=== PATIENT | male | born 1955 | race Caucasian/White ===

== ENCOUNTER 2019-03-08 08:01 | Day surgery (SDC) | payer OTHER ==
[2019-03-03 10:12] VITALS: BMI 35.4
[~2019-03-08 08:01] MED LIST: LACTATED RINGERS 1,000 ML IV SCH
[2019-03-08 08:30] VITALS: TEMP 97.1
[2019-03-08] MEDS ORDERED: PROPOFOL 10 MG/ML 20 ML VIAL IV ONE (09:45)
[2019-03-08] MEDS ORDERED: MIDAZOLAM 2 MG/2 ML VIAL ONE (09:45)
[2019-03-08] MEDS ORDERED: fentaNYL (PF) 50 MCG/ML 2 ML AMP ONE (09:45)
[2019-03-08 10:16] VITALS: PULSE 87
--- NOTE | 2019-03-08 10:16 | P.PCN ---
Date of Procedure: 03/08/19 Description of Procedure: BRIEF HISTORY: Patient is a 63-year-old pleasant male scheduled for an elective colonoscopy as a part of colorectal cancer screening. The patient denies any family history of colon cancer, blood per rectum, or change in bowel habits he reports his last colonoscopy was approximately 8 years ago. PROCEDURE PERFORMED: Colonoscopy with polypectomy. PREOPERATIVE DIAGNOSIS: Colorectal cancer screening, last colonoscopy 8 years ago. ESTIMATED BLOOD LOSS: Minimal. IV sedation per Anesthesia. PROCEDURE: After informed consent was obtained, the patient, was brought into the endoscopy unit. IV sedation was administered by Anesthesia under continuous monitoring. Digital rectal examination was normal. Initially the Olympus CF-190 flexible video colonoscope was then inserted in the rectum, gradually advanced into the cecum without any difficulty. Careful examination was performed as the scope was gradually being withdrawn. Ileocecal valve and the appendiceal orifice were visualized and appeared normal. Prep was excellent. Mucosa of the cecum, ascending colon, transverse colon, descending colon, sigmoid colon, and rectum appeared normal. You diverticulosis noted, worse in the left colon. Diminutive 2 mm sessile rectal polyp removed with cold forcep polypectomy. Mild internal hemorrhoids. Retroflexion was performed in the rectum and no lesions were seen. The patient tolerated the procedure well. IMPRESSION: Normal-appearing colon from rectum to cecum Pandiverticulosis Diminutive rectal polyp, removed with cold forceps Mild internal hemorrhoids RECOMMENDATIONS: Findings of this examination were discussed with the patient his . Recom mend high-fiber diet. Await pathology from biopsies. Anticipate repeat colonoscopy in 5 years pending pathology from polypectomy.
[2019-03-08 10:35] VITALS: BP 177/90; RESP 18
== END 2019-03-08 10:49 | disposition home or self-care (01) ==
LOC: ORWHC2ENDO 08:01
PROVIDERS: ATTEND Internal Medicine
DX: Z12.11 Encounter for screening for malignant neoplasm of colon (principal); K62.1 Rectal polyp; K57.30 Diverticulosis of large intestine without perforation or abscess without bleeding; K64.8 Other hemorrhoids; I10 Essential (primary) hypertension; E78.5 Hyperlipidemia, unspecified; Z87.891 Personal history of nicotine dependence; Z79.82 Long term (current) use of aspirin; Z79.899 Other long term (current) drug therapy; Z85.46 Personal history of malignant neoplasm of prostate
CPT/HCPCS: 88305; 45380; J2250; J3010; J2704